=== PATIENT | male | born 1950 | race African-American/Black ===

== ENCOUNTER → 2017-03-05 | Outpatient (CLI) | payer BC, MEDICARE ==
--- NOTE | 2017-03-05 11:58 | Diagnostic Imaging Report ---
PROCEDURE: CT CHEST WITHOUT CONTRAST CT scan of the chest WITHOUT intravenous contrast, using standard protocol. TECHNIQUE: The chest was scanned utilizing a multidetector helical scanner from the apex to the level of the adrenal glands. No IV contrast was administered per protocol/per physician request) Coronal and sagittal multiplanar reformations were obtained. COMPARISON: Patients [facility], CT, CT CHEST W, 09/01/2014, 11:01. INDICATIONS: NODULE, PAIN FINDINGS: Lines/tubes: None. Lungs and Airways: Re-demonstration of pulmonary fibrosis most significantly involving the lower lobes. No focal consolidation or masses. Surgical changes in the left lung suggesting status post biopsy. Pleura: The pleural spaces are clear. Heart and mediastinum: There has been interval decrease in size of the present described enlarged mediastinal lymph nodes focal process, upper carinal lymph node previously measuring 1.9 x 1 4 cm on image 53 series 2 currently measures 1.5 cm on image 55 series 2. The main pulmonary artery remains enlarged measuring 3.4 cm in diameter. The thyroid gland is normal. No significant hilar or axillary lymphadenopathy is seen. The heart and pericardium are within normal limits. Mild coronary artery calcifications. Soft tissues: Normal. Abdomen: Limited views of the upper abdomen show postoperative changes suggesting status post hiatal hernia repair. The adrenal glands are normal. Bones: The visualized bony thorax is within normal limits. IMPRESSION: 1. No acute thoracic abnormality. 2. Bilateral pulmonary fibrosis predominantly involving the lower lobes again observed. 3. Interval resolution of mediastinal lymphadenopathy. Olga Lopez M.D. Dictated by: Olga Lopez M.D. on 03/05/2017 at 12:07 Electronically approved by: Olga Lopez M.D. on 03/05/2017 at 12:07
--- NOTE | 2017-03-06 08:29 | Diagnostic Imaging Report ---
#[id number] - [id number] #MALE BILATERAL DIGITAL DIAGNOSTIC MAMMOGRAM WITH CAD: 03/05/2017 No prior exams were available for comparison. Current study contains 5 films. Current study was also evaluated with a Computer Aided Detection (CAD) system. There are benign calcifications in both breasts. There also is a benign intramammary node in the left breast. No significant masses, calcifications, or other findings are seen in either breast. IMPRESSION: BENIGN There is no mammographic evidence of malignancy. Followup as clinically indicated. Nils Patterson Jr., D.O. cw/:03/05/2017 10:24:21 Floor Refinisher: Muna NICOLE(R)(M), [facility] letter sent: Normal Exam Mammogram BI-RADS: 2 Benign
== END ==
LOC: CT 08:18
PROVIDERS: ATTEND Family Medicine
DX: R91.1 Solitary pulmonary nodule (principal); N64.4 Mastodynia
CPT/HCPCS: 71250; G0204

== ENCOUNTER → 2018-08-23 | Outpatient (CLI) | payer BC, MEDICARE ==
--- NOTE | 2018-08-23 09:38 | Diagnostic Imaging Report ---
Exam: Head CT without contrast History: New daily persistent headache Comparison studies: None Technique: Axial images were obtained from the skull base to the vertex. Coronal and sagittal images reconstructed from the axial data. Dose modulation, iterative reconstruction, and/or weight based adjustment of the mA/kV was utilized to reduce the radiation dose to as low as reasonably achievable. Radiation dose: Total DLP: 921 mGy*cm. Estimated effective dose: DLP x 0.015 Intravenous contrast: None Findings: Scalp: No abnormalities. Bones: No fractures, blastic or lytic lesions. Brain sulci: Appropriate for age. Ventricles: Mild asymmetry of the lateral ventricles with the right lateral ventricle being slightly larger than the left which is most likely a anatomical variant for this patient. No hydrocephalus. Extra-axial spaces: No masses, no fluid collection. Parenchyma: Subtle hypodensities in the supratentorial white matter are nonspecific most compatible with chronic microvascular ischemic changes. Incidental nonspecific 3 mm calcification in the right dorsal gary without surrounding edema or mass effect may be dystrophic and sequela of prior infection/inflammation. No other mass. No acute hemorrhage or acute or chronic cortical insults. Sellar/suprasellar region: No abnormalities. Craniocervical junction: Patent foramen magnum. No Chiari one malformation. Incidental findings: Mild mucosal thickening in the right sphenoid sinus which also contains a partially calcified polyp or retention cyst. IMPRESSION: 1. Mild chronic microvascular ischemic changes. 2. Incidental small nonspecific right pontine dystrophic calcification. Signed by: Dr. Fredis Drew M.D. on 08/23/2018 9:34 AM
== END ==
LOC: CT 08:13
PROVIDERS: ATTEND Family Medicine
DX: G44.52 New daily persistent headache (NDPH) (principal)
CPT/HCPCS: 70450